=== PATIENT | female | born 1985 | race Caucasian/White ===

== ENCOUNTER → 2017-04-15 | Outpatient (CLI) | payer OTHER ==
[~2017-04-15] MED LIST: ASPIRIN E.C. 8181 MG PO; CALCIUM 600MG+D1 TAB PO; DHA PO; LEVEMIR FLEX100 U/ML SQ; MOTRIN 600600 MG/TAB PO; MULTI VITAMINS1 TAB PO; NOVOLOG FLEX100 U/ML; PENTASA500 MG PO; PERCOCET 325 MG1 TA2 PO; PRENATAL MVI; PRENATAL1 TA5 PO; SENOKOT S 50 MG1 TAB PO; SLOW FE45 MG PO
== END ==
LOC: SUN.DIA 15:15
DX: O24.419 Gestational diabetes mellitus in pregnancy, unspecified control (principal); O99.612 Diseases of the digestive system complicating pregnancy, second trimester; O30.002 Twin pregnancy, unspecified number of placenta and unspecified number of amniotic sacs, second trimester; Z3A.23 23 weeks gestation of pregnancy
CPT/HCPCS: G0108

== ENCOUNTER → 2017-04-21 | Outpatient (CLI) | payer OTHER | LOC: SUN.DIA 11:12 | DX: O24.419 Gestational diabetes mellitus in pregnancy, unspecified control (principal); O99.612 Diseases of the digestive system complicating pregnancy, second trimester; O30.002 Twin pregnancy, unspecified number of placenta and unspecified number of amniotic sacs, second trimester; Z3A.24 24 weeks gestation of pregnancy | CPT/HCPCS: G0108 ==

== ENCOUNTER → 2017-05-24 | Outpatient (CLI) | payer OTHER ==
[~2017-05-24] MED LIST changes: +PROCARDIA XL 6060 MG PO
== END ==
LOC: SUN.DIA 08:45
DX: O24.419 Gestational diabetes mellitus in pregnancy, unspecified control (principal); Z3A.29 29 weeks gestation of pregnancy; Z71.3 Dietary counseling and surveillance
CPT/HCPCS: G0108

== ENCOUNTER 2017-07-19 16:16 | Outpatient (RCR) | payer OTHER ==
[2017-06-14 09:42] VITALS: BP 128/71; PULSE 97; TEMP 98.9
[~2017-07-19] VITALS: Ht 162.6 cm; Wt 98.9 kg
[~2017-07-19 16:16] MED LIST changes: -PROCARDIA XL 6060 MG PO
== END 2017-07-19 16:20 | disposition home or self-care (01) ==
LOC: LDRO 16:16
DX: O30.003 Twin pregnancy, unspecified number of placenta and unspecified number of amniotic sacs, third trimester (principal)

== ENCOUNTER 2017-07-19 18:06 | Inpatient (IN) | payer OTHER ==
[2017-07-19] VITALS (15 sets, daily range): BP systolic 116–176; BP diastolic 73–102; PULSE 73–96; TEMP 97.6–98.2
[~2017-07-19] VITALS: Ht 162.6 cm; Wt 101.4 kg
[2017-07-19 19:30] LABS: BASO % 0.4 % (0.0-2.0); EOS # 0.1 (0.0-0.7); EOS % 1.3 % (0-4.0); GRAN # 8.2 (1.4-6.5); GRAN % 78.4 % (42.2-75.2); HEMATOCRIT 38.3 % (37.0-47.0); HEMOGLOBIN 12.6 g/dl (12.5-16.0); LYMPH # 1.1 (1.2-3.4); LYMPH % 10.9 % (20.0-51.0); MEAN CELL VOLUME 91 fl (80.0-100.0); MEAN CORPUSCULAR HEMOGLOBIN 30 pg (27.0-31.0); MEAN CORPUSCULAR HGB CONC 33 g/dl (33.0-37.0); MEAN PLATELET VOLUME 10.4 fl (7.4-10.4); MONO # 0.8 (0.1-0.6); MONO % 7.6 % (1.7-9.3); PLATELET COUNT 220 K/mm3 (130-400); RED BLOOD COUNT 4.23 M/mm3 (4.10-5.30); REDCELL DISTRIBUTION WIDTH-CV 14.6 % (11.5-14.5); WHITE BLOOD COUNT 10.4 K/mm3 (4.8-10.8)
[2017-07-19 19:41] LABS: ADJUSTED CALCIUM 9.6 mg/dL (8.4-10.2); ALBUMIN 3.3 gm/dL (3.5-5.0); BILIRUBIN,TOTAL 0.6 mg/dL (0.0-1.0); CREATININE, serum 0.75 mg/dL (0.52-1.25); POTASSIUM 4.2 mmol/L (3.4-5.0); TOTAL PROTEIN 6.7 gm/dL (6.4-8.2)
[2017-07-20] VITALS (13 sets, daily range): BP systolic 136–170; BP diastolic 78–112; PULSE 69–91; TEMP 97.4–98.3
[2017-07-20 12:20] LABS: BASO % 0.2 % (0.0-2.0); EOS % 0.3 % (0-4.0); GRAN # 10.4 (1.4-6.5); GRAN % 85.8 % (42.2-75.2); LYMPH # 0.8 (1.2-3.4); LYMPH % 6.4 % (20.0-51.0); MEAN CELL VOLUME 91 fl (80.0-100.0); MEAN CORPUSCULAR HGB CONC 33 g/dl (33.0-37.0); MEAN PLATELET VOLUME 10.2 fl (7.4-10.4); MONO # 0.8 (0.1-0.6); MONO % 6.4 % (1.7-9.3); PLATELET COUNT 174 K/mm3 (130-400); RED BLOOD COUNT 3.49 M/mm3 (4.10-5.30); REDCELL DISTRIBUTION WIDTH-CV 14.6 % (11.5-14.5); WHITE BLOOD COUNT 12.1 K/mm3 (4.8-10.8)
[2017-07-20 12:24] LABS: HEMATOCRIT 31.7 % (37.0-47.0); HEMOGLOBIN 10.5 g/dl (12.5-16.0); MEAN CORPUSCULAR HEMOGLOBIN 30 pg (27.0-31.0)
[2017-07-20 12:29] LABS: ADJUSTED CALCIUM 9.3 mg/dL (8.4-10.2); ALBUMIN 2.6 gm/dL (3.5-5.0); BILIRUBIN,TOTAL 0.4 mg/dL (0.0-1.0); CALCIUM 8.2 mg/dL (8.4-10.2); CREATININE, serum 0.82 mg/dL (0.52-1.25); POTASSIUM 4.6 mmol/L (3.4-5.0); TOTAL PROTEIN 5.5 gm/dL (6.4-8.2)
[2017-07-21 04:46] VITALS: BP 119/82; PULSE 94; TEMP 98.1
[2017-07-21 09:35] VITALS: BP 135/83; PULSE 100
[2017-07-21 17:30] VITALS: BP 126/73; PULSE 106
[2017-07-21 21:30] VITALS: BP 131/77; PULSE 109; TEMP 98.1
[2017-07-22 07:00] VITALS: BP 120/84; PULSE 108; TEMP 98.1
[2017-07-22] MEDS ORDERED: PERCOCET 325 MG1 TA2 PO (09:12)
[2017-07-22] MEDS ORDERED: MOTRIN 600600 MG/TAB PO (09:12)
[2017-07-22] MEDS ORDERED: PROCARDIA XL 6060 MG PO (09:12)
== END 2017-07-22 15:40 | disposition home or self-care (01) | DRG 765 ==
LOC: LDRO 18:06 → OB 19:05
PROVIDERS: Obstetrics & Gynecology
PROC: 10D00Z1 Extraction of Products of Conception, Low, Open Approach (ICD-10-PCS; principal; 2017-07-19)
DX: O34.211 Maternal care for low transverse scar from previous cesarean delivery (principal); O11.4 Pre-existing hypertension with pre-eclampsia, complicating childbirth; O10.92 Unspecified pre-existing hypertension complicating childbirth; O30.033 Twin pregnancy, monochorionic/diamniotic, third trimester; N85.8 Other specified noninflammatory disorders of uterus; O24.424 Gestational diabetes mellitus in childbirth, insulin controlled; O69.81X0 Labor and delivery complicated by cord around neck, without compression, not applicable or unspecified; Z37.2 Twins, both liveborn; Z3A.36 36 weeks gestation of pregnancy
CPT/HCPCS: J0690; J1885; J2175; J2270; J2370; J2405; J2590; J7040; J7120

== ENCOUNTER 2018-04-26 09:34 | Day surgery (SDC) | payer OTHER ==
[~2018-04-26] VITALS: Ht 160 cm; Wt 89.2 kg
[~2018-04-26 09:34] MED LIST changes: +PROCARDIA XL 6060 MG PO
[2018-04-26 09:54] VITALS: BP 138/90; PULSE 95; TEMP 98.6
[2018-04-26] MEDS ORDERED: MONONESSA 35 MC1 TA1 PO (10:17)
[2018-04-26] MEDS ORDERED: ENTOCORT EC3 MG PO (11:28)
[2018-04-26 11:34] VITALS: BP 131/83; PULSE 88; TEMP 97.8
[2018-04-26 11:49] VITALS: BP 121/78; PULSE 93
[2018-04-26 12:04] VITALS: BP 122/79; PULSE 78
== END 2018-04-26 12:30 | disposition home or self-care (01) ==
LOC: SDCO 09:34
DX: K50.00 Crohn's disease of small intestine without complications (principal); K64.0 First degree hemorrhoids
CPT/HCPCS: OP; J2250; J3010; J7030

== ENCOUNTER → 2018-11-22 | Outpatient (REF) ==
[~2018-11-22] MED LIST changes: +ENTOCORT EC3 MG PO; +MONONESSA 35 MC1 TA1 PO
[2018-11-22 13:34] LABS: THYROID STIMULATING HORMONE 1.36 uIU/mL (0.465-4.680)
== END ==
LOC: ZLAB.WCH 12:49
PROVIDERS: Family Medicine
DX: Z01.89 Encounter for other specified special examinations (principal)

== ENCOUNTER 2021-01-28 07:11 | Day surgery (SDC) | payer OTHER ==
[~2021-01-28] VITALS: Ht 160 cm; Wt 89.4 kg
[2021-01-28 08:13] VITALS: BP 133/87; PULSE 93; TEMP 97.9
[2021-01-28] MEDS ORDERED: PENTASA500 MG PO (08:31)
[2021-01-28] MEDS ORDERED: ONE-A-DAY ESSE1 EACH PO (08:34)
[2021-01-28] MEDS ORDERED: OMEGA-31 SGL PO (08:35)
[2021-01-28] MEDS ORDERED: FLONASE NASAL S16 GM NS (08:36)
[2021-01-28] MEDS ORDERED: PROBIOTIC BLEN1 EACH PO (08:36)
[2021-01-28 09:30] VITALS: BP 116/76; PULSE 88
--- NOTE | 2021-01-28 09:30 | NUR ---
Pt to [facility] 4 via cart from endo. Pt awake and alert. Pt denies pain or nausea. Water and crackers given per pt request. Warm blanket provided. Friend in room. Call light within reach.
[2021-01-28 09:45] VITALS: BP 128/89; PULSE 70
--- NOTE | 2021-01-28 09:45 | NUR ---
Pt tolerating po food and fluids without difficulties. Denies needs. Call light within reach.
[2021-01-28 10:00] VITALS: BP 129/92; PULSE 73
--- NOTE | 2021-01-28 10:00 | NUR ---
IV site discontinued with all parts intact. Discharge instructions reviewed. Pt voices understanding. Pt up to dress. Call light within reach.
--- NOTE | 2021-01-28 10:15 | NUR ---
Pt escorted to private car via wheel chair. Pt accompanied home by her friend Dean.
== END 2021-01-28 10:15 | disposition home or self-care (01) ==
LOC: SDCO 07:11
DX: K56.699 Other intestinal obstruction unspecified as to partial versus complete obstruction (principal); K50.00 Crohn's disease of small intestine without complications; K52.9 Noninfective gastroenteritis and colitis, unspecified; Z20.822 Contact with and (suspected) exposure to COVID-19; Z80.0 Family history of malignant neoplasm of digestive organs; Z79.899 Other long term (current) drug therapy; Z83.71 Family history of colonic polyps
CPT/HCPCS: J2704; J7030

== ENCOUNTER 2023-10-29 13:48 | Outpatient (CLI) | payer OTHER ==
[~2023-10-29] VITALS: Ht 160 cm; Wt 98.5 kg
[2023-10-29] VITALS (7 sets, daily range): BP systolic 119–142; BP diastolic 79–91; PULSE 79–96; TEMP 98.7
[~2023-10-29 13:48] MED LIST changes: +CLARITIN 1010 MG/TAB; +FLONASE NASAL S16 GM NS; +LEXAPRO 10MG10 MG PO; +OMEGA-31 SGL PO; +ONE-A-DAY ESSE1 EACH PO; +PROBIOTIC BLEN1 EACH PO
[2023-10-29 14:25] LABS: BASO % 0.4 % (0.0-2.0); EOS # 0.2 K/mm3 (0.0-0.7); EOS % 2.5 % (0.0-4.0); GRAN # 5.8 K/mm3 (1.4-6.5); GRAN % 79.8 % (42.2-75.2); HEMATOCRIT 39.4 % (37.0-47.0); HEMOGLOBIN 12.9 g/dl (12.5-16.0); LYMPH # 0.8 K/mm3 (1.2-3.4); LYMPH % 10.3 % (20.0-51.0); MEAN CELL VOLUME 92 fl (80.0-100.0); MEAN CORPUSCULAR HEMOGLOBIN 30 pg (27-31); MEAN CORPUSCULAR HGB CONC 33 g/dl (33.0-37.0); MEAN PLATELET VOLUME 8.8 fl (7.4-10.4); MONO # 0.5 K/mm3 (0.1-0.6); MONO % 6.7 % (1.7-9.3); PLATELET COUNT 293 K/mm3 (130-400); RED BLOOD COUNT 4.29 M/mm3 (4.10-5.30); REDCELL DISTRIBUTION WIDTH-CV 13.4 % (11.5-14.5)
[2023-10-29] MEDS ORDERED: STELARA90 MG/ML SQ (14:33)
[2023-10-29 14:40] LABS: ALBUMIN 4.2 gm/dL (3.5-5.0); BILIRUBIN,TOTAL 0.4 mg/dL (0.2-1.2); CALCIUM 9.1 mg/dL (8.4-10.2); CREATININE, serum 0.83 mg/dL (0.57-1.11); POTASSIUM 4.1 mmol/L (3.5-4.5)
--- NOTE | 2023-10-29 16:42 | NUR ---
Pt tolerated infusion without issue. No complaints through infusion. She will remain for 2 hr obs period as ordered. She is snacking on pretzels, and drinks provided. She ambulated to restroom, gait steady. ADELINE Aviles will assume cares of pt while she remains in dept, report was given. Pt denies further needs at this time.
== END 2023-10-29 18:35 | disposition home or self-care (01) ==
LOC: EUO 13:48
PROVIDERS: Internal Medicine Gastroenterology
DX: K50.80 Crohn's disease of both small and large intestine without complications (principal)
CPT/HCPCS: J1200; J2930; J3358